=== PATIENT | male | born 1955 | race Caucasian/White ===

== ENCOUNTER 2016-07-12 18:02 | Observation (INO) | payer MEDICARE, MEDICAID ==
[2016-07-12] MEDS ORDERED: NS 0.9% 1000 ML* 1,000 ML IV ONE (18:17)
[2016-07-12] MEDS ORDERED: Aspirin Low Dose CHEW TAB* 81 MG PO ONE (18:17)
[2016-07-12] MEDS ORDERED: Heparin for STEMI(*) 5,000 UNITS/ML 1 ML VIAL IV ONE (18:17)
[2016-07-12 18:34] LABS: Hematocrit 49 % (42-52); Mean Corpuscular HGB Conc 33 g/dl (31-36); Mean Corpuscular Hemoglobin 28 pg (27-31); Mean Corpuscular Volume 86 fL (80-94); Mean Platelet Volume 9 um3 (7.4-10.4); Red Blood Count 5.67 10^6/ul (4.0-5.4); Red Cell Distribution Width 14 % (10.5-15)
[2016-07-12 18:36] LABS: Add Diff/Slide Review? Slide Review Added; Comments Flag Yes
--- NOTE | 2016-07-12 18:46 | RAD ---
INDICATION: Chest pain COMPARISON: None. TECHNIQUE: Single AP portable view of the chest was obtained. FINDINGS: Image quality is compromised due to the relative inferiority of a portable chest x-ray. The heart and mediastinum exhibit normal size and contour. Overlying the upper right lung there is a 2.1 cm oval-shaped density that does not appear to correspond to any ribs or other bony structures in the vicinity. Otherwise the lungs are grossly clear. There is no evidence of a large pleural effusion. Visualized bones are normal for the patient's age. IMPRESSION: There is a 2.1 cm, apparently well-circumscribed, density at the right upper lung. Without any prior chest imaging the chronicity of this is unknown. Otherwise there are no acute cardiopulmonary findings.
[2016-07-12 18:47] LABS: Troponin I 0.01 ng/mL (<0.04)
[2016-07-12 18:52] LABS: Albumin 4.5 g/dL (3.2-5.2); BUN/Creatinine Ratio 13.4 (8-20); EGFR African American 123.3 (>60); EGFR Non-African American 95.8 (>60); Globulin 3.5 g/dL (2-4); Potassium 3.5 mmol/L (3.5-5.0); Total Bilirubin 0.7 mg/dL (0.2-1.0)
[2016-07-12] MEDS ORDERED: fentaNYL* 50 MCG/ML 2 ML VIAL (100 MCG VIAL) ONE (19:00)
[2016-07-12] MEDS ORDERED: Heparin(*) 1000 UNIT/ML 10 ML VIAL CATH LAB IV ONE (19:00)
[2016-07-12] MEDS ORDERED: Midazolam* 1 MG/ML 5 ML VIAL (5 MG) ONE (19:00)
[2016-07-12] MEDS ORDERED: VERAPAMIL 2.5 MG/ML 4 ML VIAL ONE (19:00)
[2016-07-12] MEDS ORDERED: nitroGLYCERIN DRIP* 250 ML ONE (19:01)
[2016-07-12] MEDS ORDERED: Heparin 2 UNITS/ML IVPREMIX* 3,000 ML IV ONE (19:01)
[2016-07-12] MEDS ORDERED: Lidocaine 1% INJ* 10 MG/ML 30 ML SDV ONE (19:01)
[2016-07-12] MEDS ORDERED: Iodixanol* (CONTRAST) 320 MG/ML 100 ML SDV ONE (19:01)
[2016-07-12] MEDS ORDERED: methylPREDNISolone 125 MG* 2 ML VIAL ONE (19:08)
[2016-07-12] MEDS ORDERED: diPHENhydraMINE IV* 50 MG/ML 1 ml VIAL (BENADRYL) ONE (19:08)
--- NOTE | 2016-07-12 19:18 | ED ---
Roberth Malhotra Billy, scribed for Sukhdev Renee MD on 07/12/16 at 1823 . HPI Chest Pain - HPI Summary HPI Summary: Patient is a 60 year-old male coming to [facility] for evaluation of intermittent chest pain radiating to the neck and shoulders starting at 2300 last night while he was watching television. He describes sharp pain that is worse when lying down, better when sitting up. Denies nausea, diaphoresis, or SOB. He states that his pain has entirely resolved by this time in the ED. Denies any previous AK. Positive family history of cardiac disease. - History of Current Complaint Chief Complaint: EDChestPainROMI Time Seen by Provider: 07/12/16 18:17 Hx Obtained From: Patient Onset/Duration: Started Hours Ago Time of Onset: 23:00 - 07/11/16 Timing: Intermittent Initial Severity: Moderate Current Severity: None Pain Intensity: 5 Pain Scale Used: 0-10 Numeric Chest Pain Radiates: Yes Chest Pain Radiates To:: Shoulder, Arm Character: Sharp/Stabbing Aggravating Factor(s): Position - lying down Alleviating Factor(s): Position - sitting up Associated Signs and Symptoms: Positive: Chest Pain. Negative: Shortness of Breath, Diaphoresis, Nausea - Allergy/Home Medications Allergies/Adverse Reactions: Allergies Allergy/AdvReac Type Severity Reaction Status Date / Time IV CONTRAST Allergy Intermediate Itching Uncoded 07/12/16 18:42 Home Medications: Home Medications NK [No Home Medications Reported] 07/12/16 [History Confirmed 07/12/16] PMH/Surg Hx/FS Hx/Imm Hx Endocrine/Hematology History: Denies: Hx Diabetes Cardiovascular History: Denies: Hx Hypertension, Hx Myocardial Infarction Infectious Disease History: Denies: Traveled Outside the [place] in Last 30 Days - Family History Known Family History: Positive: Cardiac Disease - Social History Alcohol Use: None Substance Use Type: Reports: None Smoking Status (MU): Heavy Every Day Tobacco Smoker Review of Systems Negative: Skin Diaphoresis Positive: Chest Pain Negative: Shortness Of Breath Negative: Nausea All Other Systems Reviewed And Are Negative: Yes Physical Exam - Summary Physical Exam Summary: The patient is well-nourished in no acute distress and in no acute pain. The skin is warm and diaphoretic and skin color reflects adequate perfusion. HEENT: The head is normocephalic and atraumatic. The pupils are equal and reactive. The conjunctivae are clear and without drainage. Nares are patent and without drainage. Mouth reveals moist mucous membranes and the throat is without erythema and exudate. The external ears are intact. The ear canals are patent and without drainage. The tympanic membranes are intact. Neck is supple with full range of motion and non-tender. There are no carotid bruits. There is no neck vein distension. Respiratory: Chest is non-tender. Lungs are clear to auscultation and breath sounds are symmetrical and equal. Cardiovascular: Heart is regular rate and rhythm. There is no murmur or rub auscultated. There is no peripheral edema and pulses are symmetrical and equal. Abdomen: The abdomen is soft and non-tender. There are normal bowel sounds heard in all four quadrants and there is no organomegaly palpated. Musculoskeletal: There is no back pain noted. Extremities are non-tender with full range of motion. There is good capillary refill. There is no peripheral edema or calf tenderness elicited. Neurological: Patient is alert and oriented to person, place and time. The patient has symmetrical motor strength in all four extremities. Cranial nerves are grossly intact. Deep tendon reflexes are symmetrical and equal in all four extremities. Psychiatric: The patient has an appropriate affect and does not exhibit any anxiety or depression. Triage Information Reviewed: Yes Vital Signs On Initial Exam: Initial Vitals Temp Pulse Resp BP Pulse Ox 98.7 F 95 20 149/92 99 07/12/16 18:05 07/12/16 18:05 07/12/16 18:05 07/12/16 18:05 07/12/16 18:05 Vital Signs Reviewed: Yes Diagnostics - Vital Signs Vital Signs Temp Pulse Resp BP Pulse Ox 07/12/16 18:05 98.7 F 95 20 149/92 99 - Laboratory Lab Results: Lab Results 07/12/16 07/12/16 07/12/16 Range/Units 18:08 18:08 18:08 WBC 12.0 H (3.5-10.8) 10^3/ul RBC 5.67 H (4.0-5.4) 10^6/ul Hgb 16.0 (14.0-18.0) g/dl Hct 49 (42-52) % MCV 86 (80-94) fL MCH 28 (27-31) pg MCHC 33 (31-36) g/dl RDW 14 (10.5-15) % Plt Count 241 (150-450) 10^3/ul MPV 9 (7.4-10.4) um3 Neut % (Auto) 71.5 (38-83) % Lymph % (Auto) 13.5 L (25-47) % Nuckolls % (Auto) 13.6 H (1-9) % Eos % (Auto) 0.3 (0-6) % Baso % (Auto) 1.1 (0-2) % Absolute Neuts (auto) 8.6 H (1.5-7.7) 10^3/ul Absolute Lymphs (auto) 1.6 (1.0-4.8) 10^3/ul Absolute Monos (auto) 1.6 H (0-0.8) 10^3/ul Absolute Eos (auto) 0 (0-0.6) 10^3/ul Absolute Basos (auto) 0.1 (0-0.2) 10^3/ul Absolute Nucleated RBC 0 10^3/ul Nucleated RBC % 0 INR (Anticoag Therapy) 0.97 (0.89-1.11) APTT 26.3 (26.0-36.3) seconds Sodium 138 (133-145) mmol/L Potassium 3.5 (3.5-5.0) mmol/L Chloride 102 (101-111) mmol/L Carbon Dioxide 28 (22-32) mmol/L Anion Gap 8 (2-11) mmol/L BUN 11 (6-24) mg/dL Creatinine 0.82 (0.67-1.17) mg/dL Est GFR ( Amer) 123.3 (>60) Est GFR (Non-Af Amer) 95.8 (>60) BUN/Creatinine Ratio 13.4 (8-20) Glucose 129 H (70-100) mg/dL Lactic Acid (0.5-2.0) mmol/L Calcium 10.0 (8.6-10.3) mg/dL Total Bilirubin 0.70 (0.2-1.0) mg/dL AST 16 (13-39) U/L ALT 15 (7-52) U/L Alkaline Phosphatase 126 H (34-104) U/L Total Creatine Kinase 62 (10-223) U/L CK-MB (CK-2) 0.9 (0.6-6.3) ng/mL Troponin I 0.01 (<0.04) ng/mL B-Natriuretic Peptide ( - 100) pg/mL Total Protein 8.0 (6.4-8.9) g/dL Albumin 4.5 (3.2-5.2) g/dL Globulin 3.5 (2-4) g/dL Albumin/Globulin Ratio 1.3 (1-3) LDL Cholesterol Direct 130 mg/dL 07/12/16 07/12/16 Range/Units 18:08 18:08 WBC (3.5-10.8) 10^3/ul RBC (4.0-5.4) 10^6/ul Hgb (14.0-18.0) g/dl Hct (42-52) % MCV (80-94) fL MCH (27-31) pg MCHC (31-36) g/dl RDW (10.5-15) % Plt Count (150-450) 10^3/ul MPV (7.4-10.4) um3 Neut % (Auto) (38-83) % Lymph % (Auto) (25-47) % Nuckolls % (Auto) (1-9) % Eos % (Auto) (0-6) % Baso % (Auto) (0-2) % Absolute Neuts (auto) (1.5-7.7) 10^3/ul Absolute Lymphs (auto) (1.0-4.8) 10^3/ul Absolute Monos (auto) (0-0.8) 10^3/ul Absolute Eos (auto) (0-0.6) 10^3/ul Absolute Basos (auto) (0-0.2) 10^3/ul Absolute Nucleated RBC 10^3/ul Nucleated RBC % INR (Anticoag Therapy) (0.89-1.11) APTT (26.0-36.3) seconds Sodium (133-145) mmol/L Potassium (3.5-5.0) mmol/L Chloride (101-111) mmol/L Carbon Dioxide (22-32) mmol/L Anion Gap (2-11) mmol/L BUN (6-24) mg/dL Creatinine (0.67-1.17) mg/dL Est GFR ( Amer) (>60) Est GFR (Non-Af Amer) (>60) BUN/Creatinine Ratio (8-20) Glucose (70-100) mg/dL Lactic Acid 2.2 H* (0.5-2.0) mmol/L Calcium (8.6-10.3) mg/dL Total Bilirubin (0.2-1.0) mg/dL AST (13-39) U/L ALT (7-52) U/L Alkaline Phosphatase (34-104) U/L Total Creatine Kinase (10-223) U/L CK-MB (CK-2) (0.6-6.3) ng/mL Troponin I (<0.04) ng/mL B-Natriuretic Peptide 59 ( - 100) pg/mL Total Protein (6.4-8.9) g/dL Albumin (3.2-5.2) g/dL Globulin (2-4) g/dL Albumin/Globulin Ratio (1-3) LDL Cholesterol Direct mg/dL Result Diagrams: 07/12/16 18:08 07/12/16 18:08 Lab Statement: Any lab studies that have been ordered have been reviewed, and results considered in the medical decision making process. - Radiology CXR Radiology Interpretation Completed By: Radiologist - There is a 2.1 cm, apparently well-circumscribed, density at the right upper lung. Without any prior chest imaging the chronicity of this is unknown. Otherwise there are no acute cardiopulmonary findings. - EKG 1813 Cardiac Rate: NL - 91 bpm EKG Rhythm: Sinus Rhythm EKG Interpretation: 2mm ST elev in II, III, aVF; non-specific ST changes elsewhere 1819 EKG Interpretation: ST elev in II, III, aVF; nonspecific ST changes elsewhere, poor R progress Chest Pain Course/Dx - Course Assessment/Plan: 60 year-old male coming to the ED for evaluation of chest pain since last night. However, he denied any pain in the ED. In the ED course, the patient was given heparin, ASA, and hydrated with IV fluids. EKG shows STEMI in II, III, and aVF. CXR shows findings as read by the radiologist. Case was discussed by Dr. Anguiano, who admitted the patient. - Diagnoses Provider Diagnoses: STEMI (ST elevation myocardial infarction) During the Visit The Following Alert/Code Occurred: STEMI - Called at 1824 - Provider Notifications Discussed Care Of Patient With: Dr. Anguiano (interventionalist) at 182: will see patient in the ED. - Critical Care Time Critical Care Time: 30-74 min - 30 minutes Discharge - Discharge Plan Condition: Stable Disposition: ADMITTED TO [facility] Referrals: No Primary Care Phys,NOPCP [Primary Care Provider] - The documentation as recorded by the Roberth wahl Billy accurately reflects the service I personally performed and the decisions made by me, Sukhdev Renee MD.
[2016-07-12] MEDS ORDERED: Acetaminophen TAB* 325 MG PO PRN (19:43)
[2016-07-12] MEDS ORDERED: NS 0.9% 1000 ML* 1,000 ML IV SCH (19:45)
[2016-07-12] MEDS ORDERED: Atorvastatin* 80 MG TAB PO SCH (20:00)
[2016-07-12] MEDS ORDERED: NS 0.9% 1000 ML* 1,000 ML IV PRN (20:17)
[2016-07-12] MEDS: Metoprolol Tartrate TAB* 25 MG PO SCH (20:22)
[2016-07-12] MEDS ORDERED: Nicotine PATCH 14 MG/24 HR* PATCH TRANSDERM SCH (21:00)
--- NOTE | 2016-07-12 23:35 | HP ---
HISTORY AND PHYSICAL: DATE OF ADMISSION: 07/12/16 PRIMARY CARE PHYSICIAN: None. HISTORY OF PRESENT ILLNESS: This 60-year-old male presented to the ER with chest pain and inferior ST elevation, STEMI alert was called. He is a somewhat vague historian but has no previous history of heart disease. Since yesterday somet santi and all night long, he had interscapular back pain with pain in his chest, it seemed to worsen w hen he lied down, improved when he sat up, this was apparently accompanied by fairly profuse diaphor esis witnessed in the ER. Currently his chest pain has improved dramatically, still has very mild pr essure between his shoulder blades. He has not had dyspnea. There is no change in exercise toleran ce. We have no old EKG. PAST MEDICAL HISTORY: Right lung solitary nodule, by history worked up at [facility] and [facility] at [place] a number of years ago, apparently he was told it was benign. PREHOSPITAL MEDICATIONS: None. ALLERGIES: To CONTRAST when he had the CT for his chest nodule manifest as hives. FAMILY HISTORY: Premature for coronary disease. SOCIAL HISTORY: Positive for tobacco use. He is a pack per day smoker. He is retired. REVIEW OF SYSTEMS: General: No weight loss, no fevers. INFORMATION RESOURCES DIRECTOR: No history of TIA or CVA. GI: No h istory of peptic ulcer disease or bleeding. Circulatory: No claudication. : Negative. Heme: No history of malignancy or anemia. Pulmonary: See above. Remainder all negative. PHYSICAL EXAMINATION VITAL SIGNS: Presenting BP in the ER 149/92, heart rate 90s, sinus rhythm. HEENT: Poor dentition. No xanthelasma, scleral injection or jaundice. EOMs normal. NECK: JVP is normal as are carotids. No bruits. LUNGS: He has a few rhonchi at the bases, clear to percussion. No wheezing. CARDIAC EXAM: Chest wall not tender, normal heart sounds. No gallop. No murmur. No rub even sitti ng upright. ABDOMEN: Soft and nontender. Aorta not palpable. No bruits. Liver not palpable. Radial, femoral and pedal pulses are palpable. He has no cyanosis, clubbing or edema. He has some excoriations on his lower extremities. NEUROLOGIC: Cranial nerves grossly intact. DIAGNOSTIC STUDIES/LABORATORY DATA: EKG shows inferolateral slight ST elevation with SC depression consistent with inferior injury, within the differential is pericarditis. Chest x-ray shows uncoiling of the aorta and a 21 mm nodule in the right lung field. CBC is normal, BMP notable for creatinine of 0.82, lactate of 2.2. BNP is 59. His LDL is 130. IMPRESSION: Suspected ST elevation infarct. His EKG is not definitive but very suggestive, also wi thin the differential is pericarditis. His history is consistent with each. He will have emergent catheterization. We discussed the procedure, risks including possible need for transfer for emergen t bypass grafting as well as bleeding, myocardial infarction, cerebrovascular accident, stroke, need for antiplatelet therapy in case of stenting, etc. He will be premedicated with steroids and Benad ryl for his CONTRAST allergy Solitary pulmonary nodule. He will be recommended outpatient workup, I have requested old records. I will encourage him to establish with a primary care physician. Tobacco use. I will encourage him not to resume smoking. CONTRAST allergy. [id number]/[facility] #: [id number]
[2016-07-13] MEDS: Metoprolol Tartrate TAB* 25 MG PO SCH ×2 (04:28→11:33)
[2016-07-13] MEDS ORDERED: Nicotine Patch Removal NOTE PATCH OFF SCH (09:00)
[2016-07-13] MEDS ORDERED: Aspirin Low Dose CHEW TAB* 81 MG PO SCH (09:00)
[2016-07-13 13:37] VITALS: BP 130/79
--- NOTE | 2016-07-13 20:52 | DS ---
CC: Oneal Anguiano MD; Suze Cedeño MD DISCHARGE SUMMARY: DATE OF ADMISSION: 07/12/16 DATE OF DISCHARGE: 07/13/16 PRIMARY CARE PHYSICIAN: None. DISCHARGE DIAGNOSES: 1. Musculoskeletal chest and back pain. 2. Early repolarization pattern EKG. 3. Tobacco use. 4. Dyslipidemia. 5. Allergy to CONTRAST. 6. Solitary pulmonary nodule. CONDITION ON DISCHARGE: Stable. PROCEDURES: Cardiac cath, right radial access, Dr. Anguiano, 07/12/16. DISCHARGE INSTRUCTIONS: ACTIVITY: To avoid heavy lifting, right hand 2 days. WOUND CARE: Shower only for 2 days. DISCHARGE MEDICATIONS: Aspirin 81 mg daily. Do not smoke. FOLLOWUP: 1. Follow up with me next week at medical [facility], he has my card and will call with an appointment to be arranged. Follow up with Dr. Cedeño for followup of his solitary pulmonary nodul e. 2. Patient's son and will work with the patient to arrange for primary care physician for ongo ing followup. HISTORY: See H and P. LABORATORY DATA: Serial troponins were 0.01, 0.01, 0.03, 0.03. BNP was normal at 59. LDL 130. Hi s sed rate was 19. Serial EKGs showed persisting early repolarization with inferior and lateral J-p oint and ST elevation without any evolution. HOSPITAL COURSE: He presented with symptoms suggestive of an acute infarct with inferolateral ST el evation. He underwent emergent catheterization via the right radial approach, was found to have no obstructive coronary artery disease, with normal left ventricular systolic function with EF of 60%. Troponins were negative, there was no evidence of ACS. Further questioning clarified the onset of his symptoms better. His upper back discomfort started abruptly after he turned suddenly to change his position, very suggestive of musculoskeletal discomfort. It also hurt with movement as well wit h lying down, with some improvement sitting up. He has not had any viral prodrome, his sed rate was normal, he was afebrile. There was no evidence on exam of pericarditis. FINAL DIAGNOSES: Musculoskeletal back and chest pain with early repolarization pattern and no evide nce of acute coronary syndrome. Because of his continued smoking and his elevated LDL, he was advis ed to take aspirin 81 mg daily, to stop smoking, to focus on lifestyle modification. He understands the importance of following up for his pulmonary nodule, which apparently in the past was thought t o be benign. Those records were requested from [facility] and [facility], are pending. On the day of eliezer duvall, he was totally asymptomatic with stable vitals, normal exam and a normal reverse [place]. [id number]/[facility] #: [id number]
== END 2016-07-13 14:35 | disposition home or self-care (01) ==
LOC: ED 18:02 → INTOOBSV 18:56 → ICU 18:56
PROVIDERS: ADMIT Internal Medicine Cardiovascular Disease; ATTEND Internal Medicine Cardiovascular Disease
DX: R07.89 Other chest pain (principal); M54.9 Dorsalgia, unspecified; R94.31 Abnormal electrocardiogram [ECG] [EKG]; R91.1 Solitary pulmonary nodule; E78.5 Hyperlipidemia, unspecified; F17.210 Nicotine dependence, cigarettes, uncomplicated; Z91.041 Radiographic dye allergy status; Z79.82 Long term (current) use of aspirin
CPT/HCPCS: 36415; 71010; 80053; 82550; 82553; 83605; 83721; 83880; 84484; 85025; 85610; 85652; 85730; 87641; 93005; 99291; A9270-GY; G0378; J1200; J1644; J2001; J2250; J2930; J3010